=== PATIENT | female | born 1965 | race Caucasian/White ===

== ENCOUNTER → 2023-10-03 12:16 | Outpatient (REF) | payer MEDICARE, OTHER, SELFPAY ==
[2023-10-03 13:19] LABS: % Basophils 0.7 % (0-2); % Eosinophils 1.1 % (0-6); % Immature Granulocytes 0.2 % (0-0.5); % Lymphocytes 36.1 % (20.5-51.1); % Neutrophils 55.9 % (42.2-75.2); Absolute Eosinophils 0.1 10^3/uL (0-0.7); Absolute Lymphocytes 2.1 10^3/uL (1.2-3.4); Absolute Monocytes 0.3 10^3/uL (0.1-0.6); Absolute Neutrophils 3.2 10^3/uL (1.4-6.5); Hematocrit 37.6 % (37.0-47.0); Hemoglobin 12.9 g/dL (12.0-16.0); Mean Corp Hgb Conc. 34.3 g/dL (33.0-37.0); Mean Corpuscular Hgb 30.5 pg (27.0-31.0); Mean Corpuscular Volume 88.9 fL (81.0-99.0); Nucleated Red Blood Cells % 0 %; Platelet Count 179 10^3/uL (130-400); Red Blood Cell Count 4.23 10^6/uL (4.20-5.40); Red Cell Dist. Width 13.1 % (11.5-14.5); White Blood Cell Count 5.7 10^3/uL (4.8-10.8)
[2023-10-03 14:04] LABS: ALT (SGPT) 27 U/L (0-35); AST (SGOT) 33 U/L (14-36); Albumin 4.2 g/dl (3.5-5.0); Alkaline Phosphatase 89 U/L (38-126); Blood Urea Nitrogen 9 mg/dl (7-17); Calcium 10.4 mg/dl (8.4-10.2); Carbon Dioxide 27 mmol/L (22-30); Chloride 105 mmol/L (98-107); Glucose 87 mg/dl (70-99); HDL Cholesterol 59 mg/dl; LDL Cholesterol, Calculated 105 mg/dl; Potassium 4.4 mmol/L (3.5-5.1); Sodium 139 mmol/L (135-145); Total Bilirubin 0.4 mg/dl (0.2-1.3); Total Cholesterol 188 mg/dl (50-199); Total Protein 6.9 g/dl (6.3-8.2); Triglyceride 121 mg/dl (10-149); Very Low Density Lipoprotein 24 mg/dl (0-30); eGFR > 60.00
[2023-10-03 14:14] LABS: LDL Cholesterol, Direct 117 mg/dl
[2023-10-05 14:00] LABS: Glycohemoglobin (HgbA1c) 5.2 % (4.0-5.6)
== END ==
LOC: REG 12:16
PROVIDERS: ATTENDING PHYSICIAN Student in an Organized Health Care Education/Training Program; FAMILY PHYSICIAN Registered Nurse Psychiatric/Mental Health
DX: R29.898 Other symptoms and signs involving the musculoskeletal system (principal); E11.9 Type 2 diabetes mellitus without complications; K76.0 Fatty (change of) liver, not elsewhere classified; E66.01 Morbid (severe) obesity due to excess calories; Z68.41 Body mass index [BMI] 40.0-44.9, adult
CPT/HCPCS: 36415; 80053; 80061; 82306; 83036; 83721; 85025

== ENCOUNTER 2023-10-22 22:00 | Emergency (ER) | payer MEDICARE, OTHER, SELFPAY ==
[2023-10-22 22:02] VITALS: BP 143/101
[2023-10-23 00:04] LABS: % Basophils 0.8 % (0-2); % Eosinophils 2.1 % (0-6); % Immature Granulocytes 0.2 % (0-0.5); % Lymphocytes 40.2 % (20.5-51.1); % Monocytes 7.3 % (1.7-9.3); % Neutrophils 49.4 % (42.2-75.2); Absolute Basophils 0.1 10^3/uL (0-0.2); Absolute Eosinophils 0.2 10^3/uL (0-0.7); Absolute Lymphocytes 3.4 10^3/uL (1.2-3.4); Absolute Monocytes 0.6 10^3/uL (0.1-0.6); Absolute Neutrophils 4.2 10^3/uL (1.4-6.5); Hematocrit 36.5 % (37.0-47.0); Hemoglobin 12.8 g/dL (12.0-16.0); Mean Corp Hgb Conc. 35.1 g/dL (33.0-37.0); Mean Corpuscular Hgb 30.8 pg (27.0-31.0); Mean Corpuscular Volume 87.7 fL (81.0-99.0); Nucleated Red Blood Cells % 0 %; Platelet Count 193 10^3/uL (130-400); Red Blood Cell Count 4.16 10^6/uL (4.20-5.40); White Blood Cell Count 8.5 10^3/uL (4.8-10.8)
[2023-10-23 00:10] LABS: Urine Albumin Negative (Neg - Trace); Urine Bilirubin Negative (Negative); Urine Character Clear (Clear); Urine Color Yellow; Urine Glucose Negative (Negative); Urine Ketone Negative (Negative); Urine Leukocyte 2+ (Negative); Urine Nitrite Negative (Negative); Urine Occult Blood Negative (Negative); Urine Urobilinogen Negative (Neg - 1+)
[2023-10-23 00:19] LABS: ALT (SGPT) 24 U/L (0-35); AST (SGOT) 29 U/L (14-36); Albumin 4.2 g/dl (3.5-5.0); Alkaline Phosphatase 89 U/L (38-126); Blood Urea Nitrogen 10 mg/dl (7-17); Calcium 10.3 mg/dl (8.4-10.2); Carbon Dioxide 27 mmol/L (22-30); Chloride 102 mmol/L (98-107); Glucose 92 mg/dl (70-99); Potassium 4.1 mmol/L (3.5-5.1); Sodium 137 mmol/L (135-145); Total Bilirubin 0.4 mg/dl (0.2-1.3); Total Protein 6.9 g/dl (6.3-8.2); eGFR > 60.00
[2023-10-23 00:21] VITALS: BP 143/85
[2023-10-23 00:21] LABS: COVID-19 Antigen Negative (Negative)
--- NOTE | 2023-10-23 00:39 | ED.GENMED ---
History of Present Illness
General
Chief Complaint: Weakness
Source: patient
Exam Limitations: none
Time Seen by Provider: 10/23/23 00:25
Nursing documentation reviewed up to this point in time: agreed with
History of Present Illness
History of Present Illness:
The patient is a pleasant 58-year-old female who reports 1 day of generalized weakness. Patient denies vision changes, cough, shortness of breath and chest pain. She reports she had a mild headache earlier in the day which is now gone. Patient
reports 1 day of burning every time she urinates. She denies back pain, nausea and vomiting. Patient denies sore throat and swollen glands.
Past History
Past History
ED Past Medical History: GERD, HTN, NIDDM, Psychiatric (Anxiety, depression, panic disorder, mental retardation, benzodiazepine abuse) and Other (Trigeminal neuralgiam UTI, Uterine fibroids, Gallstones, Iron Def anemia, )
ED Past Surgical History: Gynecological (Hysterectomy), Orthopedic (Left foot Sx, Right and left total hip replacement. Right knee replacement) and Other (Sinus surgery, Eye surgery)
Patient has exhibited threatening behavior?: No
Social History
Tobacco: Non-smoker
Alcohol: None
Drug: Other (Benzodiazepine abuse)
Personal: Single
Living: with family
Employment: Disabled
Family History
Family History: Diabetes
Review of Systems
Review of Systems
Allergies reviewed?: Yes
All Other Systems: ROS reviewed and negative except as documented in HPI and ROS
Constitutional: Reports fatigue
EENT: Reports no symptoms
Respiratory: Reports no symptoms
Cardiac: Reports no symptoms
ABD/GI: Reports no symptoms
: Reports dysuria
Musculoskeletal: Reports no symptoms
Skin: Reports no symptoms
Neurological: Reports no symptoms
Endocrine: Reports no symptoms
Hematologic/Lymphatic: Reports no symptoms
Psychiatric: Reports no symptoms
Phy Exam
Physical Exam
Physical Exam:
Physical Exam
General: no apparent distress, not acutely ill, well and comfortable. I
Neck: supple. no meningeal signs. normal psoterior pharynx
Heart: s1/s2 regular rate and rhythm, no murmur. equal radial pulses.
Lungs: no acute respiratory distress. clear bilaterally
Abdomen: normal bowel sounds. not tender. no CVAT
Neuro: alert and oriented. no focal neurological deficits
Skin: no rash
Psychiatric: well kept. interactive and cooperative
Extremities: no edema. no calf tenderness. negative homans. good distal pulses
Course
Orders/Labs/Results
Orders:
Orders
10/22/23 22:07
EKG [Electrocardiogram (*1)] Urgent
Reason for Study: Fatigue / Weakness
EKG- Treatment ONCE
10/22/23 23:54
CBC/With Diff [Complete Blood Count/With Diff] Urgent
CMP [Comprehensive Metabolic Panel] Urgent
COVID-19 Antigen Urgent
Source: Nasal Swab
Urinalysis Reflex To Culture Urgent
Date Specimen was Collected: 10/22/23
Time Specimen was Collected: 23:50
Urine Microscopic Reflex Cult Urgent
Urine Culture Urgent
RONALD Source: U
Specimen Description:
Date Specimen was Collected: 10/22/23
Time Specimen was Collected: 23:50
10/23/23 00:51
Phenazopyridine HCl [Pyridium] 100 mg PO NOW STA
10/23/23 00:52
Sulfamethox./Trimethoprim Ds [Bactrim Ds 800 mg/160 mg] 1 tablet PO NOW STA
Abnormal Lab Results
10/22/23
23:54
RBC 4.16 L 10^6/uL
(4.20-5.40)
Hct 36.5 L %
(37.0-47.0)
Calcium 10.3 H mg/dl
(8.4-10.2)
Leukocyte Esterase Rfl 2+ A
(Negative)
Urine WBC (Reflex) 26-30 A /HPF
(0-5)
Urine Bacteria (Reflex) Moderate A
(Negative)
10/22/23 23:54
10/22/23 23:54
Vital Signs
Initial and Last Documented VS:
Initial Vital Signs
Temp Pulse Resp BP Pulse Ox
98.1 F 87 18 143/101 97
10/22/23 22:02 10/22/23 22:02 10/22/23 22:02 10/22/23 22:02 10/22/23 22:02
Last Documented Vital Signs
Temp Pulse Resp BP Pulse Ox
98.1 F 87 17 143/85 96
10/22/23 22:02 10/23/23 00:21 10/23/23 00:21 10/23/23 00:21 10/23/23 00:21
MDM/Problems Addressed
Differential Diagnosis Includes:
Acute dehydration, acute hyponatremia, UTI, pneumonia, COVID
MDM/Problems Addressed:
Patient presents with acute generalized weakness and dysuria
Chronic conditions affecting care:
Given patient's history of diabetes, she is at increased risk of infection
Chronic conditions affecting care: DM
*EKG
Interpreted by ED Provider?: Yes
Interpretation: normal
Comparison EKG: no comparison EKG present
Rate: normal
Rhythm: sinus
[place]: normal axis
Interval: normal interval
QRS Pattern: normal QRS
Ischemia: no ischemia
*Critical Care Note
Total Time (30-74mins, 75-104mins- exclusive of procedures): Not Applicable
Data Reviewed
Review of Other/Old Records Reveals: Radiology Studies (CT report reviewed from 10/2022 which showed no sign of renal abnormalities.)
Source: patient
Patient Management
Social determinants of health affecting care: Living situation and Strong social support
Escalation/DeEscalation of care consider admission/obs:
Patient looks well and comfortable. She has no focal weakness or numbness. She is afebrile
ED Attending Note
-
Portions of this chart may have been created with voice recognition software.� Occasional wrong word or��sound alike� substitutions may have occurred due to the inherent limitations of voice recognition software.
Discharge Plan
Departure
Patient Disposition: Home (Routine Discharge)
Date of Disposition: 10/23/23
Time of Disposition: 00:52
Patient with high blood pressure during this ER visit?: Yes
Condition: Good
Covid-19: Not Applicable
Discharge Problem:
Generalized weakness, UTI (urinary tract infection)
Instructions: Generalized Weakness (DC), Urinary Tract Infection, Adult ED
Prescriptions:
New
sulfamethoxazole-trimethoprim [Bactrim DS] 800-160 mg tablet
1 tab PO BID Qty: 13 0RF
phenazopyridine [Pyridium] 100 mg tablet
100 mg PO TID PRN (Reason: Pain) Qty: 7 0RF
No Action
omeprazole [Prilosec] 20 MG capsule,delayed release(DR/EC)
20 mg PO DAILY
quetiapine [Seroquel XR] 400 MG tablet extended release 24 hr
400 mg PO HS
metformin 500 MG tablet
500 mg PO BID
citalopram 10 MG tablet
30 mg PO DAILY
albuterol sulfate 1 PUFF HFA aerosol inhaler
1 puff inhalation R Q4HPRN PRN (Reason: SOB) Qty: 1 0RF
cyclobenzaprine 10 MG tablet
5 mg PO PRN PRN (Reason: NERVE PAIN IN FACE)
buspirone 10 MG tablet
15 mg PO TID
gabapentin 300 MG capsule
300 mg PO TID
cholecalciferol (vitamin D3) 2,000 UNITS tablet
4,000 units PO DAILY
magnesium hydroxide 30 ML suspension
30 ml PO DAILYPRN PRN (Reason: constipation) 0RF
lorazepam 1 MG tablet
1 mg PO TID Qty: 30 0RF
Paxlovid 300 mg (150 mg x 2)-100 mg tablets,dose pack
See Rx Instructions .ROUTE .COMPLEX Qty: 30 0RF
Rx Instructions:
take TWO 150 mg tablets of nirmatrelvir with ONE 100 mg tablet of ritonavir twice daily for 5 days
miconazole nitrate [Miconazorb AF] 1 APPLIC powder
1 applic topical BID Qty: 1 6RF
Rx Instructions:
apply to affected area
Referrals:
Emmy Segundo MD [Family Provider] -
Interventions
Interventions:
*Risk Screen - Suicide Last Done: 10/22/23 23:40
*General Assessment Last Done: 10/22/23 23:40
*Neglect/Abuse Screening Last Done: 10/22/23 23:40
ED- Fall Risk Assessment Last Done: 10/23/23 00:13
ED- Cardiac Assessment Last Done: 10/23/23 00:13
ED- Neurological Assessment Last Done: 10/23/23 00:13
ED- Pulmonary Assessment Last Done: 10/23/23 00:13
Discharge Date and Time
Print Language: SERBIAN
[2023-10-23 00:41] LABS: Urine Red Blood Cell 0-2 /HPF (0-2)
[2023-10-23 00:42] LABS: Urine Bacteria Moderate (Negative); Urine White Cell 26-30 /HPF (0-5)
[2023-10-23] MEDS: Pyridium 100 MG PO (01:00)
[2023-10-23] MEDS: BACTRIM DS 800 MG/160 MG 1 TABLET PO (01:00)
== END 2023-10-23 01:16 | disposition home or self-care (01) ==
LOC: EMR 22:00
PROVIDERS: Emergency Medicine; EMERGENCY PHYSICIAN Emergency Medicine; FAMILY PHYSICIAN Student in an Organized Health Care Education/Training Program
DX: R53.1 Weakness (principal); N39.0 Urinary tract infection, site not specified; K21.9 Gastro-esophageal reflux disease without esophagitis; I10 Essential (primary) hypertension; E11.9 Type 2 diabetes mellitus without complications; F41.8 Other specified anxiety disorders; F79 Unspecified intellectual disabilities; D25.9 Leiomyoma of uterus, unspecified; D50.9 Iron deficiency anemia, unspecified; Z83.3 Family history of diabetes mellitus; Z87.440 Personal history of urinary (tract) infections; Z90.710 Acquired absence of both cervix and uterus
CPT/HCPCS: 99283; 80053; 81003; 81015; 85025; 87086; 87811; 93005

== ENCOUNTER 2023-12-05 17:25 | Emergency (ER) | payer MEDICARE, OTHER, SELFPAY ==
[2023-12-05 17:28] VITALS: BP 134/70
[2023-12-05 18:12] LABS: % Basophils 0.6 % (0-2); % Eosinophils 1.1 % (0-6); % Immature Granulocytes 0.2 % (0-0.5); % Lymphocytes 44.4 % (20.5-51.1); % Monocytes 5.9 % (1.7-9.3); % Neutrophils 47.8 % (42.2-75.2); Absolute Eosinophils 0.1 10^3/uL (0-0.7); Absolute Lymphocytes 2.8 10^3/uL (1.2-3.4); Absolute Monocytes 0.4 10^3/uL (0.1-0.6); Absolute Neutrophils 3.1 10^3/uL (1.4-6.5); Hematocrit 35.3 % (37.0-47.0); Hemoglobin 12.4 g/dL (12.0-16.0); Mean Corp Hgb Conc. 35.1 g/dL (33.0-37.0); Mean Corpuscular Hgb 30.1 pg (27.0-31.0); Mean Corpuscular Volume 85.7 fL (81.0-99.0); Nucleated Red Blood Cells % 0 %; Red Blood Cell Count 4.12 10^6/uL (4.20-5.40); White Blood Cell Count 6.4 10^3/uL (4.8-10.8)
[2023-12-05 18:18] LABS: ALT (SGPT) 30 U/L (0-35); AST (SGOT) 37 U/L (14-36); Albumin 4.2 g/dl (3.5-5.0); Alkaline Phosphatase 82 U/L (38-126); Blood Urea Nitrogen 4 mg/dl (7-17); Calcium 10.3 mg/dl (8.4-10.2); Carbon Dioxide 24 mmol/L (22-30); Chloride 98 mmol/L (98-107); Glucose 90 mg/dl (70-99); Sodium 133 mmol/L (135-145); Total Bilirubin 0.4 mg/dl (0.2-1.3); Total Protein 6.9 g/dl (6.3-8.2); eGFR > 60.00
[2023-12-05 18:28] LABS: Mean Platelet Volume 10.3 fL (7.4-10.4); Platelet Count 202 10^3/uL (130-400)
--- NOTE | 2023-12-05 18:28 | ED.GENMED ---
History of Present Illness
General
Chief Complaint: Weakness
Source: patient
Time Seen by Provider: 12/05/23 18:19
History of Present Illness
History of Present Illness:
58-year-old female with past medical history of cognitive disorder, trigeminal neuralgia, adrenal tumor, anxiety and depression presenting the ER for evaluation after she was diagnosed with COVID about 1 week ago noting first day of symptoms was
last , started to feel little bit better yesterday but today woke up very fatigued and felt generally weak. Patient reported exertional dyspnea in triage however her symptoms are more just generalized fatigue than actual shortness of
breath. Patient denies any continued cough but does admit to some mild diarrhea. She also is requesting her urine be tested as sometimes when she feels weak she has a urinary tract infection although denying any urinary symptoms. Patient notes
normal p.o. intake. No other concerns presently.
Past History
Past History
ED Past Medical History: GERD, HTN, NIDDM, Psychiatric (Anxiety, depression, panic disorder, mental retardation, benzodiazepine abuse) and Other (Trigeminal neuralgiam UTI, Uterine fibroids, Gallstones, Iron Def anemia, )
ED Past Surgical History: Gynecological (Hysterectomy), Orthopedic (Left foot Sx, Right and left total hip replacement. Right knee replacement) and Other (Sinus surgery, Eye surgery)
Patient has exhibited threatening behavior?: No
Social History
Tobacco: Non-smoker
Alcohol: None
Drug: Other (Benzodiazepine abuse)
Personal: Single
Living: with family
Employment: Disabled
Family History
Family History: Diabetes
Review of Systems
Review of Systems
All Other Systems: ROS reviewed and negative except as documented in HPI and ROS
Phy Exam
Physical Exam
Physical Exam:
GENERAL: Alert , in no apparent distress
HEAD: NCAT
EYE: conjunctiva clear
NECK: Supple
ENT: o/p clr, mmm.
CARDIAC: Regular rate and rhythm
LUNGS: Clear breath sounds bilaterally, no acute respiratory distress, no wheezes/rales/rhonchi
ABDOMEN: soft, non-tender, non-distended
NEUROLOGICAL: Alert and oriented
SKIN: Warm and dry, skin intact.
MUSCULOSKELETAL: well perfused.
PSYCH: Normal and appropriate interaction.
Scores
Heart Failure Risk
Heart Failure Risk Score: Not Applicable
Heart Score for Chest Pain Patients
STEMI patient?: Not applicable
Withdrawal Assessment of Alcohol
Withdrawal Assessment Completed?: Not applicable
Course
Orders/Labs/Results
Orders:
Orders
12/05/23 17:33
Electrocardiogram (*1) Urgent
Reason for Study: Shortness of Breath
EKG- Treatment ONCE
12/05/23 17:48
Complete Blood Count/With Diff Urgent
Comprehensive Metabolic Panel Urgent
12/05/23 18:27
Loperamide [Imodium] 2 mg PO NOW STA
12/05/23 18:48
Urinalysis Reflex To Culture Urgent
Date Specimen was Collected: 12/05/23
Time Specimen was Collected: 18:43
Abnormal Lab Results
12/05/23
17:48
RBC 4.12 L 10^6/uL
(4.20-5.40)
Hct 35.3 L %
(37.0-47.0)
Sodium 133 L mmol/L
(135-145)
BUN 4 L mg/dl
(7-17)
Calcium 10.3 H mg/dl
(8.4-10.2)
AST 37 H U/L
(14-36)
12/05/23 17:48
12/05/23 17:48
Vital Signs
Initial and Last Documented VS:
Initial Vital Signs
Temp Pulse Resp BP Pulse Ox
97.8 F 68 18 134/70 99
12/05/23 17:28 12/05/23 17:28 12/05/23 17:28 12/05/23 17:28 12/05/23 17:28
Last Documented Vital Signs
Temp Pulse Resp BP Pulse Ox
97.8 F 68 18 134/70 99
12/05/23 17:28 12/05/23 17:28 12/05/23 17:28 12/05/23 17:28 12/05/23 17:28
MDM/Problems Addressed
Differential Diagnosis Includes:
post-covid syndrome, electrolyte abnormalities, anemia, less concern for UTI
MDM/Problems Addressed:
58-year-old female presenting to the emergency department for evaluation of generalized weakness in the setting of recent COVID diagnosis. Overall patient is very well-appearing in no acute distress. Hemodynamically stable. Labs were initiated in
triage and are unremarkable for any acute findings. Patient requesting a dose of Imodium for her diarrhea. Will check urinalysis at patient request as well although my suspicion for UTI is quite low. Anticipate discharge home.
*Pulse Oximetry
Patient hypoxic: no
*EKG
Interpreted by ED Provider?: Yes
Comparison EKG: no changes
Heart Rate: 58
Rate: bradycardiac
Rhythm: sinus
[place]: normal axis
Ischemia: no ischemia
*[employer] Specialist Manager Interpretation
Rate: normal
Rhythm: sinus
*Critical Care Note
Total Time (30-74mins, 75-104mins- exclusive of procedures): Not Applicable
Patient Management
Escalation/DeEscalation of care consider admission/obs:
Patient's urinalysis unremarkable. She is stable for discharge home and aware of return cautions.
ED Attending Note
-
Portions of this chart may have been created with voice recognition software.� Occasional wrong word or��sound alike� substitutions may have occurred due to the inherent limitations of voice recognition software.
Discharge Plan
Departure
Patient Disposition: Home (Routine Discharge)
Date of Disposition: 12/05/23
Time of Disposition: 18:40
Patient with high blood pressure during this ER visit?: No
Discharge Problem:
Post-COVID syndrome
Instructions: Generalized Weakness (DC)
Prescriptions:
New
loperamide [Imodium A-D] 2 mg capsule
2 mg PO Q6H PRN (Reason: loose stool) Qty: 14 0RF
No Action
omeprazole [Prilosec] 20 MG capsule,delayed release(DR/EC)
20 mg PO DAILY
quetiapine [Seroquel XR] 400 MG tablet extended release 24 hr
400 mg PO HS
metformin 500 MG tablet
500 mg PO BID
citalopram 10 MG tablet
30 mg PO DAILY
albuterol sulfate 1 PUFF HFA aerosol inhaler
1 puff inhalation R Q4HPRN PRN (Reason: SOB) Qty: 1 0RF
cyclobenzaprine 10 MG tablet
5 mg PO PRN PRN (Reason: NERVE PAIN IN FACE)
buspirone 10 MG tablet
15 mg PO TID
gabapentin 300 MG capsule
300 mg PO TID
cholecalciferol (vitamin D3) 2,000 UNITS tablet
4,000 units PO DAILY
magnesium hydroxide 30 ML suspension
30 ml PO DAILYPRN PRN (Reason: constipation) 0RF
lorazepam 1 MG tablet
1 mg PO TID Qty: 30 0RF
Paxlovid 300 mg (150 mg x 2)-100 mg tablets,dose pack
See Rx Instructions .ROUTE .COMPLEX Qty: 30 0RF
Rx Instructions:
take TWO 150 mg tablets of nirmatrelvir with ONE 100 mg tablet of ritonavir twice daily for 5 days
sulfamethoxazole-trimethoprim [Bactrim DS] 800-160 mg tablet
1 tab PO BID Qty: 13 0RF
phenazopyridine [Pyridium] 100 mg tablet
100 mg PO TID PRN (Reason: Pain) Qty: 7 0RF
miconazole nitrate [Miconazorb AF] 1 APPLIC powder
1 applic topical BID Qty: 1 6RF
Rx Instructions:
apply to affected area
Referrals:
Emmy Segundo MD [Family Provider] -
Interventions
Interventions:
*Risk Screen - Suicide Last Done: 12/05/23 17:28
*General Assessment Last Done: 12/05/23 17:28
*Neglect/Abuse Screening Last Done: 12/05/23 17:28
ED- Fall Risk Assessment Last Done: 12/05/23 19:13
*Nursing Disposition Last Done: 12/05/23 19:13
ED- Neurological Assessment Last Done: 12/05/23 19:13
Discharge Date and Time
Discharge Date/Time: 12/05/23 19:14
Print Language: SINHALA
[2023-12-05] MEDS: IMODIUM 2 MG PO (18:47)
[2023-12-05 18:58] LABS: Urine Albumin Negative (Neg - Trace); Urine Bilirubin Negative (Negative); Urine Character Clear (Clear); Urine Color Yellow; Urine Glucose Negative (Negative); Urine Ketone Negative (Negative); Urine Leukocyte Negative (Negative); Urine Nitrite Negative (Negative); Urine Occult Blood Negative (Negative); Urine Urobilinogen Negative (Neg - 1+)
== END 2023-12-05 19:14 | disposition home or self-care (01) ==
LOC: EMR 17:25
PROVIDERS: Physician Assistant Medical; EMERGENCY PHYSICIAN Emergency Medicine; FAMILY PHYSICIAN Student in an Organized Health Care Education/Training Program
DX: R53.1 Weakness (principal); R53.83 Other fatigue; R06.09 Other forms of dyspnea; R19.7 Diarrhea, unspecified; U09.9 Post COVID-19 condition, unspecified; G50.0 Trigeminal neuralgia; D35.00 Benign neoplasm of unspecified adrenal gland; E11.9 Type 2 diabetes mellitus without complications; F32.A Depression, unspecified; F41.9 Anxiety disorder, unspecified; F41.0 Panic disorder [episodic paroxysmal anxiety]; F79 Unspecified intellectual disabilities; I10 Essential (primary) hypertension; K21.9 Gastro-esophageal reflux disease without esophagitis; D50.9 Iron deficiency anemia, unspecified; Z87.440 Personal history of urinary (tract) infections; Z96.642 Presence of left artificial hip joint; Z96.651 Presence of right artificial knee joint; Z88.8 Allergy status to other drugs, medicaments and biological substances
CPT/HCPCS: 99283; 80053; 81003; 85025; 93005

== ENCOUNTER 2024-03-10 19:02 | Emergency (ER) | payer MEDICARE, OTHER, SELFPAY ==
[2024-03-10 19:10] VITALS: BP 166/94
--- NOTE | 2024-03-10 19:16 | ED.GENMED ---
ED Provider Triage
<Agnes Sanchez PA-C - Last Filed: 03/10/24 19:17>
-
Patient seen by provider in Triage?: Seen in Triage
Attestation: A medical screening examination has been initiated by a qualified medical provider. Based on the assessment performed at this time, it has been determined that an emergent medical condition may exist and the patient has been informed
that further medical evaluation and possible additional diagnostic testing may be needed.
HPI: 58yoF here with a head injury. Fell out of her wheelchair striking her head. No LOC. C/o headache. Sustained a scalp laceration. No thinners.
GENERAL: Alert , in no apparent distress
EYE: No visual abnormalities.
NECK: Trachea midline
ENT: No visible abnormalities.
LUNGS: No acute respiratory distress
NEUROLOGICAL: Alert and oriented
SKIN: Skin intact. No visible changes.
MUSCULOSKELETAL: Moving extremities normally
PSYCH: Normal and appropriate interaction.
This is a medical evaluation conducted in person to initiate diagnostic evaluation and provide initial therapeutics. Please see further documentation by the treating clinician.
R parietal hematoma noted. CT head ordered and ice applied.
History of Present Illness
<Agnes Sanchez PA-C - Last Filed: 03/10/24 19:17>
General
Chief Complaint: Head Injury
Time Seen by Provider: 03/10/24 20:06
<Ira Koo NP - Last Filed: 03/11/24 01:17>
General
Source: patient and family (Sister at bedside)
Exam Limitations: none
Nursing documentation reviewed up to this point in time: agreed with
History of Present Illness
History of Present Illness:
58-year-old female with history of mental disability, significant arthritis, here for scalp laceration. She states she came down the stairs on the chair lift, walked over to a wheelchair, went to sit in her wheelchair, stumbled and backward
striking the back of her head on a [place] countertop. She then fell to the floor. She denies loss of consciousness, denies neck or back pain. She denies any injury from the fall. She has a mild headache. Denies change in vision. Denies N/V.
Her tetanus immunization is up-to-date.
Past History
<Agnes Sanchez PA-C - Last Filed: 03/10/24 19:17>
Past History
ED Past Medical History: GERD, HTN, NIDDM, Psychiatric (Anxiety, depression, panic disorder, mental retardation, benzodiazepine abuse) and Other (Trigeminal neuralgiam UTI, Uterine fibroids, Gallstones, Iron Def anemia, )
ED Past Surgical History: Gynecological (Hysterectomy), Orthopedic (Left foot Sx, Right and left total hip replacement. Right knee replacement) and Other (Sinus surgery, Eye surgery)
Patient has exhibited threatening behavior?: No
Social History
Tobacco: Non-smoker
Alcohol: None
Drug: Other (Benzodiazepine abuse)
Personal: Single
Living: with family
Employment: Disabled
Family History
Family History: Diabetes
Review of Systems
<Ira Koo RADIATION SAFETY OFFICER - Last Filed: 03/11/24 01:17>
Review of Systems
Allergies reviewed?: Yes
All Other Systems: ROS reviewed and negative except as documented in HPI and ROS
Constitutional: Denies fatigue
Respiratory: Denies trouble breathing
Cardiac: Denies chest pain or syncope
ABD/GI: Denies abdominal pain or nausea
: Denies incontinence
Musculoskeletal: Denies neck pain or back pain
Skin: Reports other (Scalp laceration)
Neurological: Reports headache (Mild); Denies dizzy, weakness or numbness
Phy Exam
<Ira Koo RADIATION SAFETY OFFICER - Last Filed: 03/11/24 01:17>
Physical Exam
Physical Exam:
GENERAL: No acute distress. A&Ox3.
CONSTITUTIONAL: Afebrile.
Head: 5 mm posterior scalp laceration with mild local swelling/hematoma
EYES: PERRL, conjunctivae normal
Neck: Supple
ENMT: moist mucus membranes, Pharynx nl
RESPIRATORY: Regular respirations, nonlabored, lungs clear.
CARDIOVASCULAR: Regular rate and rhythm, no murmurs, no rubs.
GI: Soft, nontender, normal BS
MUSCULOSKELETAL: No spinal bony tenderness. No tenderness to her extremities. Well perfused.
SKIN: Warm, dry, pink
PSYCH: Normal mood and affect. Well kept, interactive and appropriate
NEUROLOGIC: Awake, alert and oriented. No focal neurological deficits
Course
<Agnes Sanchez PA-C - Last Filed: 03/10/24 19:17>
Orders/Labs/Results
Orders:
Orders
03/10/24 19:24
CT Head W/o Iv Contrast Urgent
Comment:
Reason For Exam: head injury
Vital Signs
Initial and Last Documented VS:
Initial Vital Signs
Temp Pulse Resp BP Pulse Ox
98.5 F 94 18 166/94 99
03/10/24 19:10 03/10/24 19:10 03/10/24 19:10 03/10/24 19:10 03/10/24 19:10
Last Documented Vital Signs
Temp Pulse Resp BP Pulse Ox
98.5 F 94 18 166/94 99
03/10/24 19:10 03/10/24 19:10 03/10/24 19:10 03/10/24 19:10 03/10/24 19:10
<Ira Koo NP - Last Filed: 03/11/24 01:17>
Orders/Labs/Results
Orders:
Orders
03/10/24 19:24
CT Head W/o Iv Contrast Urgent
Comment:
Reason For Exam: head injury
Vital Signs
Initial and Last Documented VS:
Initial Vital Signs
Temp Pulse Resp BP Pulse Ox
98.5 F 94 18 166/94 99
03/10/24 19:10 03/10/24 19:10 03/10/24 19:10 03/10/24 19:10 03/10/24 19:10
Last Documented Vital Signs
Temp Pulse Resp BP Pulse Ox
98.5 F 94 18 166/94 99
03/10/24 19:10 03/10/24 19:10 03/10/24 19:10 03/10/24 19:10 03/10/24 19:10
Procedures
<Ira Koo, RADIATION SAFETY OFFICER - Last Filed: 03/11/24 01:17>
Laceration Closure
right pupper posterior scalp:
Status of Wound: clean
Size of Wound in cm: 0.5
Description of Wound Edges: sharp
Preparation: cleaned with saline
Revision/Debridement: routine- no revision
Type of Closure: Dermabond-skin glue
<Ira Koo, RADIATION SAFETY OFFICER - Last Filed: 03/11/24 01:17>
MDM/Problems Addressed
Differential Diagnosis Includes:
Concussion
MDM/Problems Addressed:
58-year-old female with history of mental disability, significant arthritis, here for scalp laceration. She states she came down the stairs on the chair lift, walked over to a wheelchair, went to sit in her wheelchair, stumbled and backward
striking the back of her head on a [place] countertop. She then fell to the floor. She denies loss of consciousness, denies neck or back pain. She denies any injury from the fall. She has a mild headache. Denies change in vision. Denies N/V.
Her tetanus immunization is up-to-date.
Patient has no sign of a concussion.
Laceration edges well-approximated with wound glue
No significant injury
Stable for discharge
<Ira Koo, RADIATION SAFETY OFFICER - Last Filed: 03/11/24 01:17>
*Critical Care Note
Total Time (30-74mins, 75-104mins- exclusive of procedures): Not Applicable
ED Attending Note
<Agnes Sanchez PA-C - Last Filed: 03/10/24 19:17>
-
Portions of this chart may have been created with voice recognition software.� Occasional wrong word or��sound alike� substitutions may have occurred due to the inherent limitations of voice recognition software.
Discharge Plan
Departure
Patient Disposition: Home (Routine Discharge)
Date of Disposition: 03/10/24
Time of Disposition: 20:21
Patient with high blood pressure during this ER visit?: No
Discharge Problem:
Fall from slip, trip, or stumble, Laceration of scalp
Instructions: Laceration Repair With Glue (DC), Minor Head Injury (DC)
Prescriptions:
No Action
omeprazole [Prilosec] 20 MG capsule,delayed release(DR/EC)
20 mg PO DAILY
quetiapine [Seroquel XR] 400 MG tablet extended release 24 hr
400 mg PO HS
metformin 500 MG tablet
500 mg PO BID
citalopram 10 MG tablet
30 mg PO DAILY
albuterol sulfate 1 PUFF HFA aerosol inhaler
1 puff inhalation R Q4HPRN PRN (Reason: SOB) Qty: 1 0RF
cyclobenzaprine 10 MG tablet
5 mg PO PRN PRN (Reason: NERVE PAIN IN FACE)
buspirone 10 MG tablet
15 mg PO TID
gabapentin 300 MG capsule
300 mg PO TID
cholecalciferol (vitamin D3) 2,000 UNITS tablet
4,000 units PO DAILY
magnesium hydroxide 30 ML suspension
30 ml PO DAILYPRN PRN (Reason: constipation) 0RF
lorazepam 1 MG tablet
1 mg PO TID Qty: 30 0RF
Paxlovid 300 mg (150 mg x 2)-100 mg tablets,dose pack
See Rx Instructions .ROUTE .COMPLEX Qty: 30 0RF
Rx Instructions:
take TWO 150 mg tablets of nirmatrelvir with ONE 100 mg tablet of ritonavir twice daily for 5 days
sulfamethoxazole-trimethoprim [Bactrim DS] 800-160 mg tablet
1 tab PO BID Qty: 13 0RF
phenazopyridine [Pyridium] 100 mg tablet
100 mg PO TID PRN (Reason: Pain) Qty: 7 0RF
loperamide [Imodium A-D] 2 mg capsule
2 mg PO Q6H PRN (Reason: loose stool) Qty: 14 0RF
miconazole nitrate [Miconazorb AF] 1 APPLIC powder
1 applic topical BID Qty: 1 6RF
Rx Instructions:
apply to affected area
Referrals:
Your, Doctor [Other] - As needed
Activity Restrictions/Additional Instructions:
As we discussed, I see no sign of a concussion
Return here immediately for vomiting more than once 1 hour, confusion, or headache that gets worse and worse despite Tylenol
The scalp wound should heal in 1 week
You may briefly wet the area in the shower or bath, just do not rub it or apply any ointments for 1 week.
The glue will slough off within 2 weeks.
Interventions
Interventions:
*Risk Screen - Suicide Last Done: 03/10/24 20:15
*General Assessment Last Done: 03/10/24 19:10
*Neglect/Abuse Screening Last Done: 03/10/24 20:15
ED- Fall Risk Assessment Last Done: 03/10/24 20:15
*ED COVID-19 Vaccine History Last Done: 03/10/24 19:10
*Nursing Disposition Last Done: 03/10/24 20:33
ED- Neurological Assessment Last Done: 03/10/24 20:15
ED-Skin Assessment Last Done: 03/10/24 20:15
Discharge Date and Time
Discharge Date/Time: 03/10/24 20:33
Print Language: FIJIAN
== END 2024-03-10 20:33 | disposition home or self-care (01) ==
LOC: EMR 19:02
PROVIDERS: EMERGENCY PHYSICIAN Student in an Organized Health Care Education/Training Program; FAMILY PHYSICIAN Family Medicine
DX: S01.01XA Laceration without foreign body of scalp, initial encounter (principal); W05.0XXA Fall from non-moving wheelchair, initial encounter
CPT/HCPCS: 99284; 12001; 70450

== ENCOUNTER → 2024-06-01 15:50 | Outpatient (REF) | payer MEDICARE, OTHER, SELFPAY | LOC: WDC 15:50 | PROVIDERS: ATTENDING PHYSICIAN Family Medicine | DX: Z12.31 Encounter for screening mammogram for malignant neoplasm of breast (principal) | CPT/HCPCS: 77063; 77067 ==

== ENCOUNTER → 2024-06-16 09:14 | Outpatient (REF) | payer MEDICARE, OTHER, SELFPAY ==
[2024-06-16 10:20] LABS: % Eosinophils 2.4 % (0-6); % Lymphocytes 35.2 % (20.5-51.1); % Monocytes 4.8 % (1.7-9.3); % Neutrophils 56.6 % (42.2-75.2); Absolute Eosinophils 0.1 10^3/uL (0-0.7); Absolute Lymphocytes 1.5 10^3/uL (1.2-3.4); Absolute Monocytes 0.2 10^3/uL (0.1-0.6); Absolute Neutrophils 2.4 10^3/uL (1.4-6.5); Hematocrit 38.3 % (37.0-47.0); Mean Corp Hgb Conc. 33.9 g/dL (33.0-37.0); Mean Corpuscular Hgb 29.8 pg (27.0-31.0); Mean Corpuscular Volume 87.8 fL (81.0-99.0); Mean Platelet Volume 9.9 fL (7.4-10.4); Nucleated Red Blood Cells % 0 %; Platelet Count 187 10^3/uL (130-400); Red Blood Cell Count 4.36 10^6/uL (4.20-5.40); Red Cell Dist. Width 13.2 % (11.5-14.5); White Blood Cell Count 4.2 10^3/uL (4.8-10.8)
[2024-06-16 10:58] LABS: ALT (SGPT) 31 U/L (0-35); AST (SGOT) 38 U/L (14-36); Albumin 4.5 g/dl (3.5-5.0); Alkaline Phosphatase 98 U/L (38-126); Blood Urea Nitrogen 4 mg/dl (7-17); Calcium 10.3 mg/dl (8.4-10.2); Carbon Dioxide 25 mmol/L (22-30); Chloride 100 mmol/L (98-107); Glucose 103 mg/dl (70-99); Glycohemoglobin (HgbA1c) 5.2 % (4.0-5.6); HDL Cholesterol 60 mg/dl; LDL Cholesterol, Calculated 49 mg/dl; Potassium 4.1 mmol/L (3.5-5.1); Sodium 135 mmol/L (135-145); Total Bilirubin 0.6 mg/dl (0.2-1.3); Total Cholesterol 132 mg/dl (50-199); Total Protein 6.9 g/dl (6.3-8.2); Triglyceride 117 mg/dl (10-149); Very Low Density Lipoprotein 23 mg/dl (0-30); eGFR > 60.00
[2024-06-16 11:10] LABS: TSH Reflex To Free T4 0.68 uIU/ml (0.47-4.68)
[2024-06-16 11:49] LABS: Microalbumin, Random Urine <0.6 mg/dl (0.6-1.7)
== END ==
LOC: REG 09:14
PROVIDERS: ATTENDING PHYSICIAN Family Medicine; REFERRING PHYSICIAN Registered Nurse Psychiatric/Mental Health
DX: E78.00 Pure hypercholesterolemia, unspecified (principal); E11.9 Type 2 diabetes mellitus without complications; E66.01 Morbid (severe) obesity due to excess calories; Z68.41 Body mass index [BMI] 40.0-44.9, adult
CPT/HCPCS: 36415; 80053; 80061; 82043; 82570; 83036; 84443; 85025

== ENCOUNTER → 2024-09-14 11:15 | Outpatient (REF) | payer MEDICARE, OTHER, SELFPAY ==
[2024-09-14 11:54] LABS: % Basophils 0.9 % (0-2); % Eosinophils 0.7 % (0-6); % Immature Granulocytes 0.2 % (0-0.5); % Lymphocytes 39.8 % (20.5-51.1); % Monocytes 5.9 % (1.7-9.3); % Neutrophils 52.5 % (42.2-75.2); Absolute Lymphocytes 1.8 10^3/uL (1.2-3.4); Absolute Monocytes 0.3 10^3/uL (0.1-0.6); Absolute Neutrophils 2.4 10^3/uL (1.4-6.5); Hematocrit 39.1 % (37.0-47.0); Mean Corp Hgb Conc. 33.2 g/dL (33.0-37.0); Mean Corpuscular Hgb 30.2 pg (27.0-31.0); Mean Corpuscular Volume 90.9 fL (81.0-99.0); Nucleated Red Blood Cells % 0 %; Platelet Count 164 10^3/uL (130-400); Red Cell Dist. Width 13.8 % (11.5-14.5); White Blood Cell Count 4.6 10^3/uL (4.8-10.8)
[2024-09-14 12:29] LABS: Glycohemoglobin (HgbA1c) 5.3 % (4.0-5.6)
[2024-09-14 14:18] LABS: ALT (SGPT) 23 U/L (0-35); AST (SGOT) 27 U/L (14-36); Albumin 4.5 g/dl (3.5-5.0); Alkaline Phosphatase 85 U/L (38-126); Blood Urea Nitrogen 9 mg/dl (7-17); Calcium 10.5 mg/dl (8.4-10.2); Carbon Dioxide 27 mmol/L (22-30); Chloride 107 mmol/L (98-107); Glucose 97 mg/dl (70-99); HDL Cholesterol 63 mg/dl; LDL Cholesterol, Calculated 73 mg/dl; Potassium 4.8 mmol/L (3.5-5.1); Sodium 140 mmol/L (135-145); Total Bilirubin 0.6 mg/dl (0.2-1.3); Total Cholesterol 159 mg/dl (50-199); Total Protein 7.5 g/dl (6.3-8.2); Triglyceride 116 mg/dl (10-149); Very Low Density Lipoprotein 23 mg/dl (0-30); eGFR > 60.00
== END ==
LOC: REG 11:15
PROVIDERS: ATTENDING PHYSICIAN Family Medicine; FAMILY PHYSICIAN Registered Nurse Psychiatric/Mental Health
DX: K21.9 Gastro-esophageal reflux disease without esophagitis (principal); E11.9 Type 2 diabetes mellitus without complications; K76.0 Fatty (change of) liver, not elsewhere classified
CPT/HCPCS: 36415; 80053; 80061; 83036; 85025

== ENCOUNTER → 2024-10-27 10:40 | Outpatient (REF) | payer MEDICARE, OTHER, SELFPAY ==
[2024-10-27 12:49] LABS: Calcium 10.6 mg/dl (8.4-10.2)
[2024-10-27 12:52] LABS: Vitamin D, 25-OH*** 34.2 ng/mL (30-80)
== END ==
LOC: REG 10:40
PROVIDERS: ATTENDING PHYSICIAN Family Medicine; REFERRING PHYSICIAN Registered Nurse Psychiatric/Mental Health
DX: E83.52 Hypercalcemia (principal)
CPT/HCPCS: 36415; 82306; 83970

== ENCOUNTER → 2024-11-03 14:55 | Outpatient (REF) | payer MEDICARE, OTHER, SELFPAY ==
[2024-11-03 16:55] LABS: Blood Urea Nitrogen 5 mg/dl (7-17); Calcium 10.3 mg/dl (8.4-10.2); Carbon Dioxide 25 mmol/L (22-30); Chloride 100 mmol/L (98-107); Glucose 87 mg/dl (70-99); Potassium 4.3 mmol/L (3.5-5.1); Sodium 131 mmol/L (135-145); eGFR > 60.00
== END ==
LOC: REG 14:55
PROVIDERS: ATTENDING PHYSICIAN Family Medicine
DX: E27.9 Disorder of adrenal gland, unspecified (principal)
CPT/HCPCS: 36415; 80048

== ENCOUNTER → 2024-11-19 10:15 | Outpatient (REF) | payer MEDICARE, OTHER, SELFPAY ==
[2024-11-19 11:54] LABS: Hematocrit 39.1 % (37.0-47.0); Hemoglobin 13.0 g/dL (12.0-16.0); Mean Corp Hgb Conc. 33.2 g/dL (33.0-37.0); Mean Corpuscular Volume 93.1 fL (81.0-99.0); Nucleated Red Blood Cells % 0 %; Platelet Count 182 10^3/uL (130-400); Red Cell Dist. Width 13.8 % (11.5-14.5)
[2024-11-19 12:17] LABS: ALT (SGPT) 25 U/L (0-35); AST (SGOT) 28 U/L (14-36); Albumin 4.5 g/dl (3.5-5.0); Alkaline Phosphatase 78 U/L (38-126); Blood Urea Nitrogen 9 mg/dl (7-17); Calcium 10.4 mg/dl (8.4-10.2); Carbon Dioxide 29 mmol/L (22-30); Chloride 102 mmol/L (98-107); Glucose 94 mg/dl (70-99); Magnesium 2.2 mg/dl (1.6-2.3); Potassium 4.7 mmol/L (3.5-5.1); Sodium 136 mmol/L (135-145); Total Protein 7.3 g/dl (6.3-8.2); eGFR > 60.00
[2024-11-19 12:36] LABS: C-Reactive Protein < 5.00 mg/L (0.0-10.00)
[2024-11-21 04:21] LABS: ANA, IgG Reflex to HEp-2 Detected (None Detected)
[2024-11-21 04:54] LABS: Beta-2-Glycoprotein I Ab. IgG <10 SGU (<=20); Beta-2-Glycoprotein I Ab. IgM <10 SMU (<=20)
[2024-11-21 08:17] LABS: Lead - Venous <2.0 ug/dL (<=3.4)
== END ==
LOC: REG 10:15
PROVIDERS: ATTENDING PHYSICIAN Internal Medicine Endocrinology, Diabetes & Metabolism; FAMILY PHYSICIAN Family Medicine; OTHER PHYSICIAN Registered Nurse Psychiatric/Mental Health
DX: E83.52 Hypercalcemia (principal); E27.9 Disorder of adrenal gland, unspecified; D73.89 Other diseases of spleen
CPT/HCPCS: 36415; 80053; 82232; 82330; 82384; 82627; 83655; 83735; 83835; 83970; 84100; 84155; 84165; 85025; 85652; 86038; 86140; 86146; 86147; 86430

== ENCOUNTER → 2025-02-04 18:49 | Outpatient (REF) | payer MEDICARE, OTHER, SELFPAY | LOC: PAVMRI 18:49 | PROVIDERS: ATTENDING PHYSICIAN Physician Assistant; FAMILY PHYSICIAN Family Medicine | DX: M25.512 Pain in left shoulder (principal) | CPT/HCPCS: 73221 ==

== ENCOUNTER → 2025-03-21 12:33 | Outpatient (REF) | payer MEDICARE, OTHER, SELFPAY ==
[2025-03-21 13:22] LABS: Hematocrit 39.9 % (37.0-47.0); Hemoglobin 13.0 g/dL (12.0-16.0); Mean Corp Hgb Conc. 32.6 g/dL (33.0-37.0); Mean Corpuscular Volume 93.0 fL (81.0-99.0); Nucleated Red Blood Cells % 0 %; Platelet Count 174 10^3/uL (130-400); Red Cell Dist. Width 14.1 % (11.5-14.5)
[2025-03-21 13:57] LABS: Blood Urea Nitrogen 6 mg/dl (7-17); Calcium 9.7 mg/dl (8.4-10.2); Carbon Dioxide 28 mmol/L (22-30); Chloride 103 mmol/L (98-107); Glucose 80 mg/dl (70-99); Potassium 4.9 mmol/L (3.5-5.1); Sodium 134 mmol/L (135-145); eGFR > 60.00
== END ==
LOC: REG 12:33
PROVIDERS: ATTENDING PHYSICIAN Orthopaedic Surgery Hand Surgery; FAMILY PHYSICIAN Family Medicine
DX: Z01.818 Encounter for other preprocedural examination (principal)
CPT/HCPCS: 36415; 80048; 85025; 93005

== ENCOUNTER 2025-03-23 06:10 | Day surgery (SDC) | payer MEDICARE, OTHER, SELFPAY ==
[2025-03-23] VITALS (8 sets, daily range): BP systolic 117–146; BP diastolic 68–87; BMI 40.4
[2025-03-23] MEDS: TYLENOL 1000 MG PO (08:25)
[2025-03-23] MEDS: CELEBREX 200 MG PO (08:26)
[2025-03-23 08:33] LABS: Glucose - Point of Care 88 mg/dl (70-99)
[2025-03-23] MEDS: NORMOSOL-R/PLASMALYTE-A 1000 IV (08:33)
[2025-03-23 10:28] LABS: Glucose - Point of Care 99 mg/dl (70-99)
== END 2025-03-23 12:28 | disposition home or self-care (01) ==
LOC: SDS 06:10
PROVIDERS: ATTENDING PHYSICIAN Orthopaedic Surgery Hand Surgery
DX: M75.102 Unspecified rotator cuff tear or rupture of left shoulder, not specified as traumatic (principal); M75.42 Impingement syndrome of left shoulder; S43.432A Superior glenoid labrum lesion of left shoulder, initial encounter; X58.XXXA Exposure to other specified factors, initial encounter
CPT/HCPCS: 29828; 29826; 29823; 82962